=== PATIENT | female | born 1970 | race American Indian/Alaskan Native ===

== ENCOUNTER 2020-05-16 22:20 | Emergency (ER) | payer OTHER ==
[2020-05-17 00:26] VITALS: BP 131/72
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
== END 2020-05-17 01:35 | disposition home or self-care (01) ==
LOC: ED 22:20
DX: S33.5XXA Sprain of ligaments of lumbar spine, initial encounter (principal); S76.012A Strain of muscle, fascia and tendon of left hip, initial encounter; M25.562 Pain in left knee; Z88.0 Allergy status to penicillin; Z91.040 Latex allergy status; Z79.899 Other long term (current) drug therapy; V87.7XXA Person injured in collision between other specified motor vehicles (traffic), initial encounter; Y92.410 Unspecified street and highway as the place of occurrence of the external cause; Y93.89 Activity, other specified; Y99.8 Other external cause status
CPT/HCPCS: 72100; 93005; 99283